=== PATIENT | female | born 1990 | race Caucasian/White ===

== ENCOUNTER 2016-09-20 17:08 | Emergency (ER) | payer SELFPAY ==
[2016-09-20 17:28] VITALS: BP 124/85
[2016-09-20] MEDS ORDERED: Penicillin V Potassium 500 MG Tab PO ONE (17:53)
[2016-09-20] MEDS ORDERED: Naproxen 500 MG Tab PO ONE (17:54)
--- NOTE | 2016-09-20 18:03 | EDM.PDOC ---
ED HPI ENT - General Chief Complaint: ENT Problem Stated Complaint: TOOTH/MOUTH PAIN Time Seen by Provider: 09/20/16 17:43 Source of Information: Reports: Patient, Family (Mother), RN notes reviewed History Limitations: Reports: No limitations - History of Present Illness INITIAL COMMENTS - FREE TEXT/NARRATIVE: The patient states that she has had a lower right upper toothache for the past 2 days. She suspects that a cap may have fallen off. She believes she has a fever, as she feels warm (she is afebrile here). No oral drainage. She has not seen a dentist, citing insurance issues. - Related Data Allergies/ADRs: Allergies Allergy/AdvReac Type Severity Reaction Status Date / Time No Known Allergies Allergy Verified 09/20/16 17:27 Home Meds: Home Meds Naproxen 500 mg PO Q12H PRN #20 tablet 09/20/16 [Rx] Penicillin V Potassium [IJD: Penicillin V Potassium] 500 mg PO Q6H #40 tab 09/20 [Rx] Past Medical History - Past Surgical History HEENT Surgical History: Reports: Oral surgery ([place] teeth extraction) Social & Family History - Family History Family Medical History: Noncontributory - Tobacco Use Smoking Status *Q: Current Every Day Smoker Years of Tobacco use: 10 Packs/Tins Daily: 0.7 - Alcohol Use Alcohol Use History: Yes Alcohol Use Frequency: Socially - Recreational Drug Use Recreational Drug Use: No - Living Situation & Occupation Living situation: Reports: , with spouse, with family (3 kids) Occupation: unemployed ED ROS ENT - Review of Systems Review Of Systems: See Below Constitutional: Reports: no symptoms HEENT: Reports: No symptoms Respiratory: Reports: No Symptoms Cardiovascular: Reports: No symptoms Endocrine: Reports: no symptoms GI/Abdominal: Reports: No symptoms : Reports: no symptoms Musculoskeletal: Reports: no symptoms Skin: Reports: no symptoms Neurological: Reports: No Symptoms Psychiatric: Reports: No symptoms Hematologic/Lymphatic: Reports: no symptoms Immunologic: Reports: no symptoms ED EXAM, ENT - Physical Exam Exam: See Below Exam Limited By: No limitations General Appearance: alert, WD/WN, no apparent distress Eye Exam: bilateral eye: EOMI, normal inspection Ears: normal external exam, normal canal, hearing grossly normal, normal TMs Nose: normal inspection, normal mucousa, no blood Mouth/Throat: Normal inspection, Normal gums, Normal lips, Normal oropharynx, Other (Tooth #1 absent. Tooth #5 carious. Tooth #15 carious and with filling. Teeth #16 and 17 absent. Tooth #18 severely carious. Tooth #19 carious and with filling. Tooth #20 carious. Tooth #29 carious. Tooth #30 severely carious. Tooth #31 carious. Tooth #32 absent.) Head: atraumatic, normocephalic Neck: normal inspection, supple, non-tender, full range of motion. No: lymphadenopathy (L), lymphadenopathy (R) Course - Vital Signs Last Recorded V/S: Last Vital Signs Temp 36.9 C 09/20/16 17:25 Pulse 81 09/20/16 17:25 Resp 18 09/20/16 17:25 BP 124/85 09/20/16 17:25 Pulse Ox 100 09/20/16 17:25 - Orders/Labs/Meds Orders: Active Orders 24 hr Category Date Time Status Naproxen [Naprosyn] Med 09/20/16 17:54 Once 500 mg PO ONETIME ONE Penicillin V Potassium [Veetids] Med 09/20/16 17:53 Once 500 mg PO ONETIME ONE - Re-Assessments/Exams Free Text/Narrative Re-Assessment/Exam: 09/20/16 17:55 Given the extensiveness of the patient's dental decay, I am not certain which tooth is causing her pain, however, I don't see a dental infection. Nevertheless, I will start her on penicillin and naproxen. I emphasized the need for the patient to see a dentist. Departure - Departure Time of Disposition: 17:56 Disposition: Home, Self-Care 01 Condition: good Clinical Impression: Dental caries Forms: ED Department Discharge Additional Instructions: You were seen in the emergency room today for a lower right toothache. On evaluation, you have numerous significantly decayed teeth. You have been started on the antibiotic penicillin. Take one tablet every 6 hours, as prescribed. Finish the entire prescription unless told otherwise by a dentist to You have been started on the pain medicine and naproxen. Take one tablet every 12 hours, with food, as prescribed. It is essential that you followup with a dentist within the next 10 days. The ER is not able to treat your dental issues. If any other problems, please do not hesitate to return to the ER. - My Orders Last 24 Hours: My Active Orders 09/20/16 17:53 Penicillin V Potassium [Veetids] 500 mg PO ONETIME ONE 09/20/16 17:54 Naproxen [Naprosyn] 500 mg PO ONETIME ONE - Assessment/Plan Last 24 Hours: My Active Orders 09/20/16 17:53 Penicillin V Potassium [Veetids] 500 mg PO ONETIME ONE 09/20/16 17:54 Naproxen [Naprosyn] 500 mg PO ONETIME ONE
== END 2016-09-20 18:10 | disposition home or self-care (01) ==
LOC: JD.ED 17:08
DX: K02.9 Dental caries, unspecified (principal); F17.210 Nicotine dependence, cigarettes, uncomplicated; Z98.890 Other specified postprocedural states
CPT/HCPCS: 99282; A9270; 99283